=== PATIENT | female | born 1970 | race Two or more races ===

== ENCOUNTER 2016-07-28 08:45 | Emergency (ER) | payer OTHER ==
[2016-07-28 10:02] LABS: BASOPHIL % 0.9 % (0-2)
[2016-07-28 10:04] LABS: PLATELET COUNT 423 x10^3mcL (130-400); RED CELL DISTRIBUTION WIDTH 19.2 % (11.5-14.5)
[2016-07-28 10:12] LABS: CALCIUM 8.3 mg/dL (8.5-10.1); CARBON DIOXIDE 26.5 mmol/L (21-32); CHLORIDE SERUM 103 mmol/L (98-107); CREATININE SERUM 0.9 mg/dL (0.6-1.0); GFR1 > 60 mL/min; GLUCOSE SERUM 103 mg/dL (74-106); POTASSIUM SERUM 3.4 mmol/L (3.5-5.1); SODIUM SERUM 140 mmol/L (136-145)
[2016-07-28 10:16] LABS: ALKALINE PHOSPHATASE 129 U/L (46-116); ALT/SGPT 61 U/L (14-59); AMYLASE 43 U/L (25-115); AST/SGOT 38 U/L (15-37); BILIRUBIN TOTAL 0.4 mg/dL (0.20-1.00); LIPASE 80 IU/L (73-393); TOTAL PROTEIN, SERUM 7.4 g/dL (6.4-8.2)
[2016-07-28 10:19] LABS: ALBUMIN 3.3 g/dL (3.4-5.0)
[2016-07-28 12:19] VITALS: BP 154/60
== END 2016-07-28 12:19 | disposition home or self-care (01) ==
LOC: ED 08:45
PROVIDERS: Emergency Medicine
DX: K29.00 Acute gastritis without bleeding (principal)
CPT/HCPCS: 83880; J0780; J1170; J1885; Q0162

== ENCOUNTER 2016-08-20 20:46 | Emergency (ER) | payer OTHER ==
[2016-08-20 22:54] LABS: BASOPHIL % 1.7 % (0-2)
[2016-08-20 22:57] LABS: PLATELET COUNT 440 x10^3mcL (130-400); RED CELL DISTRIBUTION WIDTH 19.5 % (11.5-14.5)
[2016-08-20 23:06] LABS: CALCIUM 8.1 mg/dL (8.5-10.1); CARBON DIOXIDE 20.6 mmol/L (21-32); CHLORIDE SERUM 101 mmol/L (98-107); GFR1 > 60 mL/min; GLUCOSE SERUM 111 mg/dL (74-106); POTASSIUM SERUM 3.5 mmol/L (3.5-5.1); SODIUM SERUM 140 mmol/L (136-145)
[2016-08-20 23:10] LABS: ALBUMIN 3.5 g/dL (3.4-5.0); ALKALINE PHOSPHATASE 126 U/L (46-116); ALT/SGPT 80 U/L (14-59); AMYLASE 39 U/L (25-115); AST/SGOT 69 U/L (15-37); BILIRUBIN TOTAL 0.4 mg/dL (0.20-1.00); LIPASE 75 IU/L (73-393); TOTAL PROTEIN, SERUM 7.7 g/dL (6.4-8.2)
[2016-08-21 01:08] VITALS: BP 137/92
== END 2016-08-21 01:08 | disposition home or self-care (01) ==
LOC: ED 20:46
PROVIDERS: Emergency Medicine
DX: R10.9 Unspecified abdominal pain (principal); R11.10 Vomiting, unspecified; R19.7 Diarrhea, unspecified; J45.909 Unspecified asthma, uncomplicated; Z88.0 Allergy status to penicillin; Z88.8 Allergy status to other drugs, medicaments and biological substances
CPT/HCPCS: J1170; J2270; J2405; J2765; J7030; Q0092

== ENCOUNTER 2018-05-10 12:44 | Emergency (ER) | payer MEDICAID ==
[~2018-05-10] VITALS: Ht 165.1 cm; Wt 96.6 kg
[2018-05-10 12:49] VITALS: Ht 165.1 cm; Wt 96.6 kg
[2018-05-10 13:08] LABS: BASOPHIL % 0.6 % (0-2); PLATELET COUNT 398 x10^3mcL (130-400)
[2018-05-10 13:10] LABS: RED CELL DISTRIBUTION WIDTH 18.5 % (11.5-14.5)
[2018-05-10 13:22] LABS: CALCIUM 9.5 mg/dL (8.5-10.1); CARBON DIOXIDE 24.5 mmol/L (21-32); CHLORIDE SERUM 103 mmol/L (98-107); CREATININE SERUM 0.7 mg/dL (0.6-1.0); GFR1 > 60 mL/min; GLUCOSE SERUM 102 mg/dL (74-106); POTASSIUM SERUM 3.8 mmol/L (3.5-5.1); SODIUM SERUM 138 mmol/L (136-145)
[2018-05-10 13:27] LABS: ALBUMIN 3.5 g/dL (3.4-5.0); ALKALINE PHOSPHATASE 105 U/L (46-116); ALT/SGPT 19 U/L (14-59); AST/SGOT 12 U/L (15-37); BILIRUBIN TOTAL 0.3 mg/dL (0.20-1.00); TOTAL PROTEIN, SERUM 7.8 g/dL (6.4-8.2)
[2018-05-10 16:03] VITALS: BP 130/61
== END 2018-05-10 17:23 | disposition home or self-care (01) ==
LOC: ED 12:44
PROVIDERS: Emergency Medicine
DX: R42 Dizziness and giddiness (principal); R51 Headache; J45.909 Unspecified asthma, uncomplicated; Z88.0 Allergy status to penicillin; Z88.8 Allergy status to other drugs, medicaments and biological substances
CPT/HCPCS: J2765; J7030; J8597